=== PATIENT | male | born 1965 | race Caucasian/White ===

== ENCOUNTER 2018-12-07 14:45 | Inpatient (IN) | payer MEDICAID, OTHER ==
[2018-12-07 15:12] LABS: ADD MAN DIFF? NO
[2018-12-07 15:18] LABS: BASOPHIL # 0.1 10^3/ul (0.0-0.1); BASOPHILS % 0.7 % (0.0-2.0); EOSINOPHILS # 0.1 10^3/ul (0.0-0.5); EOSINOPHILS % 1.1 % (0.0-7.0); HEMATOCRIT 46.3 % (42.0-52.0); HEMOGLOBIN 14.4 g/dl (14.0-18.0); LYMPHOCYTES # 3.1 10^3/ul (0.8-2.9); LYMPHOCYTES % 43.7 % (15.0-51.0); MEAN CORPUSCULAR HEMOGLOBIN 26.8 pg (29.0-33.0); MEAN CORPUSCULAR HGB CONC 31.1 g/dl (32.0-37.0); MEAN CORPUSCULAR VOLUME 86.1 fl (82.0-101.0); MEAN PLATELET VOLUME 10.5 fl (7.4-10.4); MONOCYTE # 0.3 10^3/ul (0.3-0.9); MONOCYTES % 4.7 % (0.0-11.0); NEUTROPHIL # 3.5 10^3/ul (1.6-7.5); NEUTROPHILS % 49.2 % (39.0-77.0); PLATELET COUNT 233 10^3/UL (140-415); RED BLOOD COUNT 5.38 10^6/ul (4.70-6.10); RED CELL DISTRIBUTION WIDTH 13.8 % (11.5-14.5)
[2018-12-07 15:38] LABS: ALANINE AMINOTRANSFERASE 65 IU/L (13-69); ALBUMIN 4.8 g/dl (3.3-4.9); ALKALINE PHOSPHATASE 115 IU/L (42-121); ANION GAP 21 (5-13); ASPARTATE AMINO TRANSFERASE 57 IU/L (15-46); BILIRUBIN,INDIRECT 0.3 mg/dl (0-1.1); BILIRUBIN,TOTAL 0.3 mg/dl (0.2-1.3); BLOOD UREA NITROGEN 14 mg/dl (7-20); CALCIUM 9.1 mg/dl (8.4-10.2); CARBON DIOXIDE 12 mmol/L (21-31); CHLORIDE 108 mmol/L (97-110); Estimated GFR > 60 mL/min (>60); GLUCOSE 159 mg/dl (70-220); SODIUM 141 mmol/L (135-144); TOTAL PROTEIN 7.8 g/dl (6.1-8.1)
[2018-12-07] MEDS: SOD CHLORIDE 0.9% 1,000 ML IV ×3 (15:39→22:41)
[2018-12-07 15:42] LABS: ACETAMINOPHEN < 10.0 ug/ml (10.0-30.0); ETHANOL < 10.0 mg/dl (0-0); SALICYLATE < 1.0 mg/dl (5.0-30.0)
[2018-12-07 15:45] LABS: INR 0.92; PROTIME 12.5 Sec (11.9-14.9)
[2018-12-07 15:49] LABS: TROPONIN-I < 0.012 ng/ml (0.000-0.120)
[2018-12-07 16:37] LABS: ADD UMIC YES; UR ASCORBIC ACID NEGATIVE (NEGATIVE); UR BILIRUBIN (Dip) NEGATIVE (NEGATIVE); UR BLOOD (Dip) 2+ mg/dL (NEGATIVE); UR CLARITY CLEAR (CLEAR); UR COLOR YELLOW (YELLOW); UR GLUCOSE (Dip) NEGATIVE (NEGATIVE); UR KETONES (Dip) TRACE mg/dL (NEGATIVE); UR LEUKOCYTE ESTERASE (Dip) NEGATIVE Leu/ul (NEGATIVE); UR NITRITE (Dip) NEGATIVE (NEGATIVE); UR RBC 11 /HPF (0-5); UR SPECIFIC GRAVITY (Dip) 1.016 (1.003-1.030); UR TOTAL PROTEIN (Dip) 1+ mg/dl (NEGATIVE); UR UROBILINOGEN (Dip) NEGATIVE (NEGATIVE); UR WBC 0 /HPF (0-5)
[2018-12-07] MEDS: LEVETIRACETAM 1000 MG (PMX) 100 ML IVPB (16:43)
[2018-12-07 17:08] LABS: AMPHETAMINE/METHAMPHETAMINE Negative (NEGATIVE); BARBITURATES Negative (NEGATIVE); BENZODIAZEPINES Negative (NEGATIVE); CANNABINOIDS Negative (NEGATIVE); COCAINE Negative (NEGATIVE); OPIATES Negative (NEGATIVE)
[2018-12-07 17:51] LABS: LACTIC ACID 1.5 mmol/L (0.5-2.0)
[2018-12-07] MEDS ORDERED: DOCUSATE SODIUM 100 MG CAP PO (18:30)
[2018-12-07] MEDS ORDERED: ONDANSETRON 4 MG INJ IV (18:30)
[2018-12-07] MEDS ORDERED: HYDROCODONE/APAP (5/325) TAB PO (18:30)
[2018-12-07] MEDS ORDERED: morphine 2 MG INJ IV (18:30)
[2018-12-07] MEDS ORDERED: LORAZEPAM 2 MG INJ IV (18:30)
[2018-12-07] MEDS ORDERED: ACETAMINOPHEN 325 MG TAB PO ×2 (18:30)
[2018-12-07] MEDS ORDERED: NACL 0.9% 3 ML SYG IV (18:30)
[2018-12-07] MEDS: ONDANSETRON 4 MG INJ IV ×2 (18:33→22:35)
[2018-12-07] MEDS ORDERED: GLUCOSE GEL 15 GRAM TUBE PO ×2 (19:00)
[2018-12-07] MEDS ORDERED: DEXTROSE 50% 50 ML SYRINGE IV ×2 (19:00)
[2018-12-07] MEDS ORDERED: GLUCAGON 1 MG INJ IM (19:00)
[2018-12-07] MEDS ORDERED: GLUCOSE GEL 15 GRAM TUBE BUCCAL (19:00)
[2018-12-07] MEDS: LEVETIRACETAM 500 MG (PMX) 100 ML IVPB (20:31)
[2018-12-07] MEDS: INSULIN GLARGINE [LANTus] (100 UNITS/ML) SYG SC (20:41)
[2018-12-07] MEDS: INSULIN ASPART [NOVOLOG] 3 ML PEN SC (20:53)
[2018-12-07 22:45] LABS: AMMONIA < 9 umol/l (9-30)
[2018-12-07 22:46] LABS: LACTIC ACID 1.9 mmol/L (0.5-2.0)
[2018-12-08] MEDS: ACCU-CHEK XX (01:46)
[2018-12-08 06:22] LABS: ADD MAN DIFF? NO
[2018-12-08 06:29] LABS: BASOPHILS % 0.4 % (0.0-2.0); EOSINOPHILS % 0.3 % (0.0-7.0); HEMATOCRIT 39.4 % (42.0-52.0); HEMOGLOBIN 12.6 g/dl (14.0-18.0); LYMPHOCYTES % 25.8 % (15.0-51.0); MEAN CORPUSCULAR HEMOGLOBIN 26.4 pg (29.0-33.0); MEAN CORPUSCULAR VOLUME 82.6 fl (82.0-101.0); MEAN PLATELET VOLUME 10.2 fl (7.4-10.4); MONOCYTE # 0.6 10^3/ul (0.3-0.9); MONOCYTES % 7.5 % (0.0-11.0); NEUTROPHIL # 5.1 10^3/ul (1.6-7.5); NEUTROPHILS % 65.6 % (39.0-77.0); PLATELET COUNT 203 10^3/UL (140-415); RED BLOOD COUNT 4.77 10^6/ul (4.70-6.10); RED CELL DISTRIBUTION WIDTH 14.1 % (11.5-14.5)
[2018-12-08 06:29] LABS: WHITE BLOOD COUNT 7.7 10^3/ul (4.8-10.8)
[2018-12-08 07:00] LABS: HEMOGLOBIN A1C 6.7 % (0-5.9)
[2018-12-08 07:10] LABS: ALANINE AMINOTRANSFERASE 48 IU/L (13-69); ALBUMIN 3.2 g/dl (3.3-4.9); ALBUMIN/GLOBULIN RATIO 1.45; ALKALINE PHOSPHATASE 76 IU/L (42-121); ANION GAP 8 (5-13); ASPARTATE AMINO TRANSFERASE 28 IU/L (15-46); BILIRUBIN,INDIRECT 0.5 mg/dl (0-1.1); BILIRUBIN,TOTAL 0.5 mg/dl (0.2-1.3); BLOOD UREA NITROGEN 12 mg/dl (7-20); CALCIUM 8.4 mg/dl (8.4-10.2); CARBON DIOXIDE 22 mmol/L (21-31); CHLORIDE 110 mmol/L (97-110); CHOL/HDL RATIO 3.8 RATIO; CHOLESTEROL 161 mg/dl (100-200); CREATININE 0.72 mg/dl (0.61-1.24); Estimated GFR > 60 mL/min (>60); GLUCOSE 152 mg/dl (70-220); HDL CHOLESTEROL 42 mg/dl (28-71); LDL CHOLESTEROL,CALCULATED 100 mg/dl; PHOSPHORUS 3.3 mg/dl (2.5-4.9); POTASSIUM 4.1 mmol/L (3.5-5.1); SODIUM 140 mmol/L (135-144); TOTAL PROTEIN 5.4 g/dl (6.1-8.1); TRIGLYCERIDES 96 mg/dl (0-149)
[2018-12-08 07:12] LABS: FREE THYROXINE INDEX (Calc) 1.66 ug/ml (0.65-3.89); T3 UPTAKE 34.5 % (23.5-40.5); T4 (THYROXINE) 4.8 ug/dl (5.5-11.0)
[2018-12-08] MEDS: INSULIN ASPART [NOVOLOG] 3 ML PEN SC ×8 (08:00→21:00)
[2018-12-08] MEDS: ENOXAPARIN 40 MG/0.4 ML SYG SC (09:02)
[2018-12-08] MEDS: LEVETIRACETAM 500 MG (PMX) 100 ML IVPB (09:05)
[2018-12-08] MEDS: SOD CHLORIDE 0.9% 1,000 ML IV ×2 (14:47→21:06)
[2018-12-08] MEDS: INSULIN GLARGINE [LANTus] (100 UNITS/ML) SYG SC (20:00)
[2018-12-09] MEDS: ACCU-CHEK XX (02:00)
[2018-12-09] MEDS: INSULIN ASPART [NOVOLOG] 3 ML PEN SC ×6 (08:00→17:10)
[2018-12-09] MEDS: ENOXAPARIN 40 MG/0.4 ML SYG SC (08:20)
[2018-12-09] MEDS: SOD CHLORIDE 0.9% 1,000 ML IV (10:26)
== END 2018-12-09 18:43 | disposition home or self-care (01) | DRG 93 ==
LOC: E/R 14:45 → 6WM 18:19
DX: G92 Toxic encephalopathy (principal); R56.9 Unspecified convulsions; R31.9 Hematuria, unspecified; N40.0 Benign prostatic hyperplasia without lower urinary tract symptoms; E11.649 Type 2 diabetes mellitus with hypoglycemia without coma; Z86.73 Personal history of transient ischemic attack (TIA), and cerebral infarction without residual deficits
CPT/HCPCS: 36415; 70450; 70551; 71045; 80053; 80061; 80307; 81001; 82140; 82962; 83036; 83605; 83735; 84100; 84436; 84479; 84484; 85025; 85610; 93005; 95819; 96374; 97161; 99285-25